=== PATIENT | male | born 1995 | race Caucasian/White ===

== ENCOUNTER 2022-09-12 09:39 | Emergency (ER) | payer MEDICAID ==
[~2022-09-12] VITALS: Ht 195.6 cm; Wt 159.1 kg
[~2022-09-12 09:39] MED LIST: NO HOME MEDS; SULF1TAB49 PO
[2022-09-12 09:56] VITALS: TEMP 97.9
[2022-09-12] MEDS ORDERED: ondansetron/PF 4mg/2ml inj IV ONE (10:00)
[2022-09-12] MEDS ORDERED: normal saline 1000ML IV soln IVB ONE (10:00)
[2022-09-12 10:24] LABS: BASOPHILS % (AUTO) 0.7 % (0-1); EOSINOPHILS # (AUTO) 0.1 X10'3 (0-0.9); EOSINOPHILS % (AUTO) 1.4 % (0-6); HEMATOCRIT 47.9 % (42.0-52.0); HEMOGLOBIN 16.4 g/dl (14.0-17.9); LYMPHOCYTES # (AUTO) 1.7 X10'3 (1.1-4.8); LYMPHOCYTES % (AUTO) 24.6 % (21-51); MEAN CORPUSCULAR HEMOGLOBIN 27.8 PG (27.0-31.0); MEAN CORPUSCULAR HGB CONC 34.2 g/dL (33.0-36.5); MEAN CORPUSCULAR VOLUME 81.3 FL (78-98); MEAN PLATELET VOLUME 8.2 FL (7.4-10.4); MONOCYTES # (AUTO) 0.7 X10'3 (0-0.9); MONOCYTES % (AUTO) 10.1 % (2-12); NEUTROPHILS # (AUTO) 4.4 X10'3 (1.8-7.7); NEUTROPHILS % (AUTO) 63.2 % (42-75); PLATELET COUNT 353 X10'3 (140-440); RED BLOOD COUNT 5.89 X10'6 (4.70-6.10); RED CELL DISTRIBUTION WIDTH 13.6 % (11.5-14.5)
[2022-09-12 10:50] LABS: ALANINE AMINOTRANSFERASE 43 U/L (12-78); ALBUMIN/GLOBULIN RATIO 1.1 (1.1-1.5); ALKALINE PHOSPHATASE 141 IU/L (46-116); ANION GAP 17 (8-16); BILIRUBIN,TOTAL 0.7 MG/DL (0.1-1.0); BLOOD UREA NITROGEN 12 MG/DL (7-18); BUN/CREATININE RATIO 9.2 (10.0-20.0); CALCIUM 9.8 MG/DL (8.5-10.1); CHLORIDE 86 MMOL/L (99-107); CREATININE 1.31 MG/DL (0.60-1.10); LIPASE 62 U/L (73-393); SODIUM 128 MMOL/L (135-145); TOTAL CARBON DIOXIDE 25.3 MMOL/L (24-32); TOTAL PROTEIN 7.6 G/DL (6.4-8.2); eGFR 66 ML/MIN
[2022-09-12 10:52] LABS: POTASSIUM 4.7 MMOL/L (3.5-5.1)
[2022-09-12] MEDS ORDERED: normal saline 1000ml 1,000 ML IV ONE ×2 (10:55→12:20)
[2022-09-12 11:14] LABS: GLUCOSE 836 MG/DL (70-104)
[2022-09-12 11:31] LABS: ASPARTATE AMINO TRANSFERASE 12 U/L (10-37)
[2022-09-12] MEDS ORDERED: METF-516 PO ×2 (12:03)
[2022-09-12 12:05] LABS: CLARITY,URINE CLEAR (Clear); COLOR,URINE STRAW (Yellow); GLUCOSE, URINE >=1000 mg/dl (Neg); KETONES,URINE 15 mg/dl (Neg); LEUKOCYTE ESTERASE ,URINE NEGATIVE (Neg); NITRITES, URINE NEGATIVE (Neg); OCCULT BLOOD,URINE TRACE-INTACT (Neg); PROTEIN,URINE NEGATIVE (Neg); UROBILINOGEN,URINE 0.2 E.U/dL (0.2-1.0)
[2022-09-12 12:12] LABS: UA COLLECTION TYPE CLN CATCH MIDSTREAM
[2022-09-12 12:13] LABS: BACTERIA,URINE FEW /HPF (Neg); RBC,URINE 0-2 /HPF (0-2); SQUAMOUS EPITHELIAL CELL,UR FEW /LPF (FEW); WBC CLUMPS,URINE FEW /HPF (NEGATIVE); WBC,URINE 0-4 /HPF (0-4)
[2022-09-12] MEDS ORDERED: ONDA4TAB12 PO ×2 (12:52)
[2022-09-12] MEDS ORDERED: insulin regular, human 10 units/0.1 ml syringe IV ONE (12:55)
[2022-09-12 13:38] VITALS: BP 149/70; PULSE 100; RESP 20; O2SAT 98
[2022-09-13] MEDS ORDERED: METF-900 PO (12:31)
[2022-09-13] MEDS ORDERED: ONDA4TAB12 PO (12:31)
== END 2022-09-12 14:10 | disposition home or self-care (01) ==
LOC: ER 09:39
DX: R73.9 Hyperglycemia, unspecified (principal); E87.1 Hypo-osmolality and hyponatremia; R11.2 Nausea with vomiting, unspecified; F12.90 Cannabis use, unspecified, uncomplicated; Z87.891 Personal history of nicotine dependence; Z72.89 Other problems related to lifestyle; Z79.899 Other long term (current) drug therapy
CPT/HCPCS: 36415; 80053; 81001; 82948; 83690; 85025; 96361; 96374; 96375; 99284; J1815; J2405; J7030

== ENCOUNTER 2022-09-12 15:34 | Emergency (ER) | payer MEDICAID ==
[~2022-09-12] VITALS: Ht 193 cm; Wt 159.1 kg
[~2022-09-12 15:34] MED LIST changes: +METF-516 PO; +ONDA4TAB12 PO
[2022-09-12 16:03] VITALS: BP 138/90; PULSE 105; RESP 18; TEMP 99; O2SAT 96
[2022-09-13] MEDS ORDERED: ONDA4TAB12 PO (12:31)
[2022-09-13] MEDS ORDERED: METF-900 PO (12:31)
== END 2022-09-12 19:03 | disposition left against medical advice (07) ==
LOC: ER 15:35
DX: R11.2 Nausea with vomiting, unspecified (principal); Z53.21 Procedure and treatment not carried out due to patient leaving prior to being seen by health care provider
CPT/HCPCS: 82948; 99281

== ENCOUNTER 2022-09-13 10:31 | Inpatient (IN) | payer MEDICAID ==
[~2022-09-13] VITALS: Ht 195.6 cm; Wt 132.2 kg
--- NOTE | 2022-09-13 11:00 | NUR ---
Blood sugar checked, glucometer reading says "HI" . Dr. Shields aware
[2022-09-13 11:05] LABS: BASOPHILS # (AUTO) 0.1 X10'3 (0-0.2); BASOPHILS % (AUTO) 1.1 % (0-1); EOSINOPHILS # (AUTO) 0.1 X10'3 (0-0.9); EOSINOPHILS % (AUTO) 1.8 % (0-6); HEMATOCRIT 45.2 % (42.0-52.0); HEMOGLOBIN 15.2 g/dl (14.0-17.9); LYMPHOCYTES # (AUTO) 2.1 X10'3 (1.1-4.8); LYMPHOCYTES % (AUTO) 28.6 % (21-51); MEAN CORPUSCULAR HEMOGLOBIN 27.7 PG (27.0-31.0); MEAN CORPUSCULAR HGB CONC 33.5 g/dL (33.0-36.5); MEAN CORPUSCULAR VOLUME 82.6 FL (78-98); MEAN PLATELET VOLUME 8.2 FL (7.4-10.4); MONOCYTES # (AUTO) 0.7 X10'3 (0-0.9); MONOCYTES % (AUTO) 9.5 % (2-12); NEUTROPHILS # (AUTO) 4.4 X10'3 (1.8-7.7); PLATELET COUNT 306 X10'3 (140-440); RED BLOOD COUNT 5.47 X10'6 (4.70-6.10); RED CELL DISTRIBUTION WIDTH 13.2 % (11.5-14.5); WHITE BLOOD COUNT 7.4 X10'3 (4.5-11.0)
[2022-09-13 11:16] LABS: ALBUMIN 3.5 G/DL (3.4-5.0); ALKALINE PHOSPHATASE 169 IU/L (46-116); ANION GAP 14 (8-16); BILIRUBIN,TOTAL 0.8 MG/DL (0.1-1.0); BLOOD UREA NITROGEN 15 MG/DL (7-18); BUN/CREATININE RATIO 11.3 (10.0-20.0); CALCIUM 8.6 MG/DL (8.5-10.1); CHLORIDE 87 MMOL/L (99-107); CREATININE 1.33 MG/DL (0.60-1.10); LIPASE 83 U/L (73-393); MAGNESIUM 2.1 MG/DL (1.5-2.4); SODIUM 124 MMOL/L (135-145); TOTAL CARBON DIOXIDE 23.2 MMOL/L (24-32); eGFR 65 ML/MIN
[2022-09-13] MEDS ORDERED: normal saline 1000ml 1,000 ML IVB ONE ×2 (11:20→11:30)
[2022-09-13 11:29] LABS: CLARITY,URINE CLEAR (Clear); COLOR,URINE STRAW (Yellow); GLUCOSE, URINE >=1000 mg/dl (Neg); KETONES,URINE 15 mg/dl (Neg); LEUKOCYTE ESTERASE ,URINE NEGATIVE (Neg); NITRITES, URINE NEGATIVE (Neg); OCCULT BLOOD,URINE NEGATIVE (Neg); PH,URINE 5.5 (4.8-8.0); PROTEIN,URINE NEGATIVE (Neg); UROBILINOGEN,URINE 0.2 E.U/dL (0.2-1.0)
[2022-09-13 11:39] LABS: UA COLLECTION TYPE CLN CATCH MIDSTREAM
[2022-09-13 11:41] LABS: SQUAMOUS EPITHELIAL CELL,UR FEW /LPF (FEW)
[2022-09-13 11:42] LABS: BACTERIA,URINE FEW /HPF (Neg); WBC,URINE 0-4 /HPF (0-4)
[2022-09-13 11:43] LABS: RBC,URINE NONE SEEN /HPF (0-2)
[2022-09-13 11:44] LABS: YEAST FEW /HPF (NEGATIVE)
[2022-09-13 11:47] LABS: ALANINE AMINOTRANSFERASE 29 U/L (12-78); ASPARTATE AMINO TRANSFERASE 27 U/L (10-37)
[2022-09-13 11:48] LABS: GLUCOSE 897 MG/DL (70-104)
[2022-09-13] MEDS ORDERED: sodium bicarbonate (8.4%) inj. 50 MEQ in dextrose 5% water 500ml 250 ML IV PRN ×2 (11:50→14:35)
[2022-09-13] MEDS ORDERED: insulin regular, human U-100 3ml vial - multi-dose IV PRN ×2 (11:50→14:35)
[2022-09-13] MEDS ORDERED: proCHLORperazine 10 MG/2 ml inj IV ONE (11:50)
[2022-09-13] MEDS ORDERED: normal saline 1000ml 1,000 ML IV ONE ×2 (11:50)
[2022-09-13] MEDS ORDERED: potassium Cl 40MEQ/1/2NS 520ml 520 ML IV PRN ×3 (11:50→14:35)
[2022-09-13] MEDS ORDERED: potassium CL 20mEq in D5-1/2NS 1,000 ML IV PRN ×2 (11:50→14:35)
[2022-09-13] MEDS ORDERED: sodium phosphate inj. 30 MMOL in dextrose 5%-water 250 ML IV PRN (11:50)
[2022-09-13] MEDS ORDERED: normal saline 1000ml 1,000 ML IV SCH ×2 (11:50→14:35)
[2022-09-13] MEDS ORDERED: sodium bicarbonate (8.4%) inj. 100 MEQ in dextrose 5% water 500ml 500 ML IV PRN ×2 (11:50→14:35)
[2022-09-13] MEDS ORDERED: Insulin Reg/NS 100units/100mL 100 ML IV SCH ×3 (11:50→14:35)
[2022-09-13] MEDS ORDERED: potassium Cl 20 mEq SR tablet PO PRN ×4 (11:50→14:35)
[2022-09-13] MEDS ORDERED: sodium phosphate inj. 15 MMOL in dextrose 5%-water 250 ML IV PRN (11:50)
[2022-09-13] MEDS ORDERED: Neutra Phos packet PO PRN (11:50)
[2022-09-13] MEDS ORDERED: ONDA4TAB12 PO (12:31)
[2022-09-13] MEDS ORDERED: METF-900 PO (12:31)
--- NOTE | 2022-09-13 13:32 | NUR ---
Per diane Marion to give the two other NS bolus x 2 as previously ordered
[2022-09-13 14:06] LABS: ALBUMIN 3.3 G/DL (3.4-5.0); ANION GAP 14 (8-16); BLOOD UREA NITROGEN 14 MG/DL (7-18); BUN/CREATININE RATIO 13.7 (10.0-20.0); CALCIUM 8.4 MG/DL (8.5-10.1); CHLORIDE 94 MMOL/L (99-107); CREATININE 1.02 MG/DL (0.60-1.10); SODIUM 132 MMOL/L (135-145); TOTAL CARBON DIOXIDE 24.1 MMOL/L (24-32); eGFR 88 ML/MIN
[2022-09-13 14:25] LABS: PHOSPHORUS 3.2 MG/DL (2.3-4.5); POTASSIUM 3.6 MMOL/L (3.5-5.1)
[2022-09-13 14:26] LABS: GLUCOSE 604 MG/DL (70-104)
[2022-09-13] MEDS ORDERED: mag hydrox/Alum hydrox/simeth 30ml oral suspension PO PRN (14:35)
[2022-09-13] MEDS ORDERED: glucagon, human recombinant 1mg kit SUBCUT PRN ×2 (14:35→23:15)
[2022-09-13] MEDS ORDERED: magnesium Cl slow-release 64mg tablet PO PRN (14:35)
[2022-09-13] MEDS ORDERED: magnesium 2GM in 50ml NS 50 ML IV PRN (14:35)
[2022-09-13] MEDS: enoxaparin 40mg/0.4ml syringe SUBCUT SCH (14:35)
[2022-09-13] MEDS ORDERED: DEXTROSE 15 GM of carb/4 tabs (each vial/BOTTLE has 4 tablets) PO PRN ×4 (14:35→23:15)
[2022-09-13] MEDS ORDERED: magnesium hydroxide 30ml (MOM) UD suspension PO PRN (14:35)
[2022-09-13] MEDS ORDERED: ondansetron/PF 4mg/2ml inj IV PRN (14:35)
[2022-09-13] MEDS ORDERED: magnesium 4gm in 100ml NS 100 ML IV PRN (14:35)
[2022-09-13] MEDS ORDERED: acetaminophen 325mg tablet PO PRN (14:35)
[2022-09-13] MEDS ORDERED: dextrose 50%-water 50ml dispensing syringe IV PRN ×4 (14:35→23:15)
[2022-09-13 15:17] LABS: ALBUMIN 3.3 G/DL (3.4-5.0); ANION GAP 13 (8-16); BLOOD UREA NITROGEN 12 MG/DL (7-18); BUN/CREATININE RATIO 13.3 (10.0-20.0); CHLORIDE 100 MMOL/L (99-107); POTASSIUM 3.7 MMOL/L (3.5-5.1); SODIUM 136 MMOL/L (135-145); TOTAL CARBON DIOXIDE 23.2 MMOL/L (24-32); eGFR > 90 ML/MIN
[2022-09-13 15:20] LABS: GLUCOSE 417 MG/DL (70-104)
[2022-09-13 15:31] LABS: CLARITY,URINE CLEAR (Clear); COLOR,URINE STRAW (Yellow); GLUCOSE, URINE >=1000 mg/dl (Neg); KETONES,URINE 15 mg/dl (Neg); LEUKOCYTE ESTERASE ,URINE NEGATIVE (Neg); NITRITES, URINE NEGATIVE (Neg); OCCULT BLOOD,URINE NEGATIVE (Neg); PROTEIN,URINE NEGATIVE (Neg); UA COLLECTION TYPE CLN CATCH MIDSTREAM; UROBILINOGEN,URINE 0.2 E.U/dL (0.2-1.0)
[2022-09-13 15:37] LABS: BACTERIA,URINE NONE SEEN /HPF (Neg); MUCUS STRANDS NONE SEEN /LPF (Neg); RBC,URINE NONE SEEN /HPF (0-2); SQUAMOUS EPITHELIAL CELL,UR FEW /LPF (FEW); WBC,URINE 0-4 /HPF (0-4)
[2022-09-13 15:43] LABS: HEMOGLOBIN A1C > 12.0 % (4.5-6.2)
--- NOTE | 2022-09-13 17:20 | NUR ---
Patient in room PCU 3014. I have received report from ZHOU Bustamante and had the opportunity to ask questions and assume patient care.
--- NOTE | 2022-09-13 17:51 | NUR ---
Patient arrived on the unit with Insulin gtt running at 5 units an hour. Pt also have NS @ 250/hr running. Pt in NAD. Pt states "I'm hungry" carb control diet late tray ordered. Will continue to monitor.
--- NOTE | 2022-09-13 18:44 | NUR ---
Problems reprioritized. Patient report given, questions answered & plan of care reviewed with ZHOU Lockwood.
--- NOTE | 2022-09-13 18:48 | NUR ---
Patient in room PCU 3014. I have received report from Stacey and had the opportunity to ask questions and assume patient care.
[2022-09-13 18:58] VITALS: BP 143/108; PULSE 92; RESP 16; TEMP 97.4; O2SAT 97
[2022-09-13 19:26] LABS: PHOSPHORUS 1.8 MG/DL (2.3-4.5)
--- NOTE | 2022-09-13 19:42 | NUR ---
Advised Dr. Mo of following via text. PAGER ID: [phone] MESSAGE: Brian Ga [id number]. Insulin drip started at 1200. At 5units/hr. 1900 BG 274. Pt had first meal at dinner. BP is 143/108 currently and legs/arms becoming edematous. AGap 13. C02 23.2. Getting NS at 250mL/hr. Fabián. EXT [id number]
--- NOTE | 2022-09-13 19:51 | NUR ---
Dr. Mo called and advised to reduce IV rate to 100mL/hr which I did at this time.
[2022-09-13 20:00] VITALS: RESP 16; O2SAT 98
[2022-09-13] MEDS: docusate sod 100mg capsule PO SCH (20:00)
[2022-09-13] MEDS ORDERED: K and/or MAG REPLACEMENT MC SCH (20:00)
[2022-09-13] MEDS: K and/or MAG REPLACEMENT MC SCH (20:00)
[2022-09-13] MEDS ORDERED: dextrose 5%-1/2 normal saline 1,000 ML IV SCH (21:25)
[2022-09-13 22:03] VITALS: BP 160/104; PULSE 84; RESP 16; O2SAT 98
--- NOTE | 2022-09-13 22:37 | NUR ---
Pt bp 160/104 Advised MD via text and also asked if we should continue insulin drip. PAGER ID: [phone] MESSAGE: [id number], Brian Ga. Pt last BG 241, he is eating a diet. C02 23.2, AGap 13, no fluid deficit, (Bp 160/104). do we want to continue insulin drip or go to regular hypoglycemic protocol? Fabián ext [phone]
[2022-09-13] MEDS ORDERED: MESSAGE TO PHARMACY PO ONE (23:15)
[2022-09-13] MEDS ORDERED: insulin glargine (Lantus) pen - multi-dose SQ ONE (23:15)
[2022-09-14] VITALS (8 sets, daily range): BP systolic 120–150; BP diastolic 72–100; PULSE 71–95; RESP 16–20; TEMP 97.9–98.9; O2SAT 95–98
--- NOTE | 2022-09-14 00:27 | NUR ---
iNSULIN DRIP AND IV FLUIDS STOPPED AT THIS TIME. 45 MINUTES AFTER LANTUS DOSE GIVEN PER MD ORDER.
--- NOTE | 2022-09-14 06:31 | NUR ---
Problems reprioritized. Patient report given, questions answered & plan of care reviewed with Nahid.
[2022-09-14 07:28] LABS: BASOPHILS # (AUTO) 0.1 X10'3 (0-0.2); EOSINOPHILS # (AUTO) 0.3 X10'3 (0-0.9); EOSINOPHILS % (AUTO) 4.7 % (0-6); HEMATOCRIT 40.7 % (42.0-52.0); HEMOGLOBIN 13.8 g/dl (14.0-17.9); LYMPHOCYTES # (AUTO) 2.7 X10'3 (1.1-4.8); LYMPHOCYTES % (AUTO) 39.6 % (21-51); MEAN CORPUSCULAR HEMOGLOBIN 27.8 PG (27.0-31.0); MEAN CORPUSCULAR VOLUME 81.7 FL (78-98); MEAN PLATELET VOLUME 7.9 FL (7.4-10.4); MONOCYTES # (AUTO) 0.5 X10'3 (0-0.9); MONOCYTES % (AUTO) 7.5 % (2-12); NEUTROPHILS # (AUTO) 3.2 X10'3 (1.8-7.7); NEUTROPHILS % (AUTO) 47.2 % (42-75); PLATELET COUNT 245 X10'3 (140-440); RED BLOOD COUNT 4.98 X10'6 (4.70-6.10); RED CELL DISTRIBUTION WIDTH 13.5 % (11.5-14.5); WHITE BLOOD COUNT 6.8 X10'3 (4.5-11.0)
[2022-09-14 07:52] LABS: ALANINE AMINOTRANSFERASE 38 U/L (12-78); ALBUMIN 2.6 G/DL (3.4-5.0); ALBUMIN/GLOBULIN RATIO 0.9 (1.1-1.5); ALKALINE PHOSPHATASE 92 IU/L (46-116); ANION GAP 15 (8-16); ASPARTATE AMINO TRANSFERASE 25 U/L (10-37); BILIRUBIN,TOTAL 0.5 MG/DL (0.1-1.0); BLOOD UREA NITROGEN 9 MG/DL (7-18); BUN/CREATININE RATIO 11.1 (10.0-20.0); CALCIUM 7.9 MG/DL (8.5-10.1); CHLORIDE 100 MMOL/L (99-107); CREATININE 0.81 MG/DL (0.60-1.10); GLUCOSE 328 MG/DL (70-104); HDL CHOLESTEROL 28 MG/DL (35-60); LDL CHOLESTEROL 45 MG/DL (50-100); MAGNESIUM 1.8 MG/DL (1.5-2.4); PHOSPHORUS 3.1 MG/DL (2.3-4.5); SODIUM 139 MMOL/L (135-145); TOTAL CARBON DIOXIDE 24.5 MMOL/L (24-32); TOTAL PROTEIN 5.4 G/DL (6.4-8.2); TRIGLYCERIDES 997 MG/DL (20-135); eGFR > 90 ML/MIN
[2022-09-14] MEDS: docusate sod 100mg capsule PO SCH ×2 (08:00→19:35)
[2022-09-14] MEDS: K and/or MAG REPLACEMENT MC SCH ×2 (08:00→19:35)
[2022-09-14 08:06] LABS: CHOL/HDL RATIO 7.4 (0.00-4.99); CHOLESTEROL 208 MG/DL (0-200)
[2022-09-14] MEDS: enoxaparin 40mg/0.4ml syringe SUBCUT SCH (09:02)
--- NOTE | 2022-09-14 09:28 | NUR ---
Patient in room PCU 3014. I have received report from Fabián EPPERSON and had the opportunity to ask questions and assume patient care. Angeles EPPERSON, Roberto EPPERSON
[2022-09-14] MEDS: insulin Lispro (HumaLOG) vial - multi-dose SQ SCH ×4 (09:49→21:29)
--- NOTE | 2022-09-14 15:00 | NUR ---
Dietitian providing education to patient about CC diet at home and diabetes management.
--- NOTE | 2022-09-14 15:50 | NUR ---
Diabetic consult: Pt admit for hyperglycemia new onset of diabetes diagnosis with an A1c >12% and BG 897mg/dl at admit per EMR. Pt and seen at bedside. Diabetes nutrition education written/verbal provided. RD contact information left at bedside and encouraged pt/SO to reach out for any nutrition questions or concerns. Pt is currently on a carbohydrate controlled diet with average PO intake 79% x 3 meals. Pt reports appetite slowly coming back and food is starting to sound good as he is feeling better. LBM on 09/13 with routine bowel care per EMR. Will continue to follow and make nutrition interventions as appropriate. Recommendations: 1.continue carbohydrate controlled diet 2. monitor PO intake and need for ONS/double protein 3. routine bowel care 4.weekly weights Addendum: 09/14/22 at [address] Amended: Links added. Addendum: 09/14/22 at [address] HAROLDO has reviewed and approves of above note.
[2022-09-14] MEDS: normal saline 1000ml 1,000 ML IV SCH ×2 (16:45→22:33)
[2022-09-14 18:22] LABS: ALBUMIN 3.1 G/DL (3.4-5.0); BLOOD UREA NITROGEN 15 MG/DL (7-18); BUN/CREATININE RATIO 18.3 (10.0-20.0); CREATININE 0.82 MG/DL (0.60-1.10); TOTAL CARBON DIOXIDE 25.4 MMOL/L (24-32); eGFR > 90 ML/MIN
[2022-09-14 18:48] LABS: ANION GAP 11 (8-16); CHLORIDE 98 MMOL/L (99-107); GLUCOSE 323 MG/DL (70-104); POTASSIUM 3.9 MMOL/L (3.5-5.1); SODIUM 134 MMOL/L (135-145)
--- NOTE | 2022-09-14 19:01 | NUR ---
Patient in room PCU 3014. I have received report from Roberto and had the opportunity to ask questions and assume patient care.
[2022-09-14] MEDS: atorvastatin 20mg tablet PO SCH (19:23)
--- NOTE | 2022-09-14 19:28 | NUR ---
Pt PIV acciddentely pulled out by patient.
[2022-09-14] MEDS ORDERED: insulin glargine (Lantus) pen - multi-dose SQ SCH (21:00)
[2022-09-15 02:25] VITALS: BP 142/91; PULSE 74; RESP 17; TEMP 98.1; O2SAT 98
[2022-09-15] MEDS: normal saline 1000ml 1,000 ML IV SCH (05:10)
[2022-09-15 06:00] VITALS: BP 143/101; PULSE 70; RESP 16; TEMP 97.6; O2SAT 98
--- NOTE | 2022-09-15 06:22 | NUR ---
Problems reprioritized. Patient report given, questions answered & plan of care reviewed with Nahid.
[2022-09-15] MEDS: atorvastatin 20mg tablet PO SCH (07:10)
[2022-09-15] MEDS: enoxaparin 40mg/0.4ml syringe SUBCUT SCH (07:11)
[2022-09-15] MEDS: docusate sod 100mg capsule PO SCH (07:15)
[2022-09-15 08:00] VITALS: RESP 16; O2SAT 98
[2022-09-15] MEDS: K and/or MAG REPLACEMENT MC SCH (08:00)
[2022-09-15 08:08] LABS: ALANINE AMINOTRANSFERASE 36 U/L (12-78); ALBUMIN 2.6 G/DL (3.4-5.0); ALBUMIN/GLOBULIN RATIO 0.9 (1.1-1.5); ALKALINE PHOSPHATASE 96 IU/L (46-116); ANION GAP 10 (8-16); ASPARTATE AMINO TRANSFERASE 18 U/L (10-37); BILIRUBIN,TOTAL 0.5 MG/DL (0.1-1.0); BLOOD UREA NITROGEN 12 MG/DL (7-18); BUN/CREATININE RATIO 16.9 (10.0-20.0); CALCIUM 7.5 MG/DL (8.5-10.1); CHLORIDE 102 MMOL/L (99-107); CREATININE 0.71 MG/DL (0.60-1.10); GLUCOSE 286 MG/DL (70-104); MAGNESIUM 1.8 MG/DL (1.5-2.4); PHOSPHORUS 2.7 MG/DL (2.3-4.5); POTASSIUM 4.1 MMOL/L (3.5-5.1); SODIUM 135 MMOL/L (135-145); TOTAL CARBON DIOXIDE 23.1 MMOL/L (24-32); TOTAL PROTEIN 5.4 G/DL (6.4-8.2); eGFR > 90 ML/MIN
[2022-09-15 08:09] LABS: BASOPHILS # (AUTO) 0.1 X10'3 (0-0.2); EOSINOPHILS # (AUTO) 0.2 X10'3 (0-0.9); EOSINOPHILS % (AUTO) 3.9 % (0-6); HEMATOCRIT 39.5 % (42.0-52.0); HEMOGLOBIN 13.6 g/dl (14.0-17.9); LYMPHOCYTES # (AUTO) 2.4 X10'3 (1.1-4.8); LYMPHOCYTES % (AUTO) 41.4 % (21-51); MEAN CORPUSCULAR HEMOGLOBIN 28.3 PG (27.0-31.0); MEAN CORPUSCULAR HGB CONC 34.5 g/dL (33.0-36.5); MEAN PLATELET VOLUME 7.8 FL (7.4-10.4); MONOCYTES # (AUTO) 0.5 X10'3 (0-0.9); MONOCYTES % (AUTO) 7.9 % (2-12); NEUTROPHILS # (AUTO) 2.7 X10'3 (1.8-7.7); NEUTROPHILS % (AUTO) 45.8 % (42-75); PLATELET COUNT 219 X10'3 (140-440); RED BLOOD COUNT 4.82 X10'6 (4.70-6.10); RED CELL DISTRIBUTION WIDTH 13.3 % (11.5-14.5); WHITE BLOOD COUNT 5.9 X10'3 (4.5-11.0)
--- NOTE | 2022-09-15 08:25 | NUR ---
Patient in room PCU 3014. I have received report from Fabián EPPERSON and had the opportunity to ask questions and assume patient care. Will continue to monitor pt, Angeles EPPERSON, Roberto EPPERSON
[2022-09-15] MEDS: insulin Lispro (HumaLOG) vial - multi-dose SQ SCH ×2 (08:54→14:12)
--- NOTE | 2022-09-15 11:13 | NUR ---
MD chacon, discussed discharge plan with patient. Nurse educated on taking blood sugar, purposes of different insulins, metformin, and lisinopril for pt, Angeles EPPERSON
[2022-09-15 11:54] LABS: TRIGLYCERIDES 1037 MG/DL (20-135)
[2022-09-15] MEDS ORDERED: fenofibrate 145mg tablet PO SCH (13:10)
[2022-09-15] MEDS ORDERED: LANTUS SQ (13:20)
[2022-09-15] MEDS ORDERED: OMEG1CAP61 PO (13:20)
[2022-09-15] MEDS ORDERED: GEMF600T89 PO (13:20)
[2022-09-15] MEDS ORDERED: LISI20TA28 PO (13:20)
[2022-09-15] MEDS ORDERED: INSU100V11 SQ (13:20)
[2022-09-15] MEDS ORDERED: FENO145T46 PO (13:20)
[2022-09-15] MEDS ORDERED: AMLO5TAB16 PO (13:20)
[2022-09-15] MEDS ORDERED: METF-1203 PO (13:20)
[2022-09-15 13:34] VITALS: BP 142/91
[2022-09-15] MEDS ORDERED: amLODIPine 5mg tablet PO ONE (14:35)
--- NOTE | 2022-09-15 14:35 | NUR ---
Amlodipine one time dose order placed per MD Telephone order, discharging pt now, Angeles EPPERSON
[2022-09-15 14:58] VITALS: BP_SYST 143; PULSE 78
== END 2022-09-15 16:21 | disposition home or self-care (01) | DRG 420 ==
LOC: ER 10:31 → CANBEDREQ 12:05 → ED HOLD 15:18 → PCU 3S 17:20
PROVIDERS: ADMIT Family Medicine; ATTEND Family Medicine
DX: E11.00 Type 2 diabetes mellitus with hyperosmolarity without nonketotic hyperglycemic-hyperosmolar coma (NKHHC) (principal); N17.0 Acute kidney failure with tubular necrosis; E87.1 Hypo-osmolality and hyponatremia; E78.1 Pure hyperglyceridemia; I10 Essential (primary) hypertension; E78.5 Hyperlipidemia, unspecified; F17.210 Nicotine dependence, cigarettes, uncomplicated; Z79.899 Other long term (current) drug therapy; Z83.3 Family history of diabetes mellitus; Z80.1 Family history of malignant neoplasm of trachea, bronchus and lung; Z79.4 Long term (current) use of insulin
CPT/HCPCS: 36415; 80048; 80053; 80061; 81001; 82948; 83036; 83690; 83735; 83930; 84100; 84443; 84478; 85025; 87081; 93005; 99285; A6258; A6402; G0378; J1650; J1815; J7030